=== PATIENT | female | born 1955 | race African-American/Black ===

== ENCOUNTER 2018-07-08 14:46 | Emergency (ER) | payer OTHER ==
[2018-07-08] MEDS: HYDROCODONE/APAP (5/325) TAB PO (16:20)
== END 2018-07-08 17:44 | disposition home or self-care (01) ==
LOC: FTE 14:46
DX: S89.92XA Unspecified injury of left lower leg, initial encounter (principal); F17.210 Nicotine dependence, cigarettes, uncomplicated; W01.0XXA Fall on same level from slipping, tripping and stumbling without subsequent striking against object, initial encounter; Y92.9 Unspecified place or not applicable; Z85.818 Personal history of malignant neoplasm of other sites of lip, oral cavity, and pharynx
CPT/HCPCS: 73562; 73590; 73630-LT; 99283-25

== ENCOUNTER 2018-07-20 13:44 | Emergency (ER) | payer OTHER ==
[2018-07-20] MEDS: BACITRACIN 0.9 GM OINT TOP (16:21)
== END 2018-07-20 16:33 | disposition home or self-care (01) ==
LOC: FTE 13:44
DX: S89.91XA Unspecified injury of right lower leg, initial encounter (principal); I10 Essential (primary) hypertension; F17.210 Nicotine dependence, cigarettes, uncomplicated; X50.1XXA Overexertion from prolonged static or awkward postures, initial encounter; Y92.9 Unspecified place or not applicable
CPT/HCPCS: 29505; 73562; 99283-25

== ENCOUNTER 2018-09-13 13:40 | Emergency (ER) | payer OTHER ==
[2018-09-13 16:07] LABS: URINE BLOOD (Dip) POC Negative (NEGATIVE); URINE GLUCOSE (Dip) POC Negative (NEGATIVE); URINE KETONES (Dip) POC Negative (NEGATIVE); URINE LEUKOCYTE EST (Dip) POC Negative (NEGATIVE); URINE NITRITE (Dip) POC Negative (NEGATIVE); URINE TOTAL PROTEIN POC 1+ (NEGATIVE)
[2018-09-13 16:07] LABS: URINE PH (Dip) POC 5.5 (5.0-8.5)
[2018-09-13] MEDS: LORAZEPAM 1 MG TAB PO (16:09)
[2018-09-13] MEDS: KETOROLAC 30 MG INJ IM (16:10)
== END 2018-09-13 19:35 | disposition home or self-care (01) ==
LOC: FTE 19:35
DX: F41.1 Generalized anxiety disorder (principal); F17.210 Nicotine dependence, cigarettes, uncomplicated
CPT/HCPCS: 81003; 96372; 99284-25